=== PATIENT | male | born 1975 | race African-American/Black ===

== ENCOUNTER → 2018-06-02 | Day surgery (SDC) | payer OTHER ==
[~2018-06-02] MED LIST: DEXAMETHASONE SOD PHOS INJ 4 MG/ML VIAL ONE; FENTANYL CITRATE/PF 100MCG/2 ML INJ ONE; GENTAMICIN 120MG/NS 100ML 100 ML ONE; IOPAMIDOL 610MG/1ML 300 MG/ML VIAL IV ONE; LEVOFLOXACIN 500MG/D5W 100ML 100 ML IV ONE; LIDOCAINE HCL 2% LOCAL INJ 5 ML SDV VIAL INJ ONE; MIDAZOLAM HCL 2 MG/2 ML VIAL ONE; ONDANSETRON HCL INJ 2 MG/ML VIAL ONE; PROPOFOL IV EMULSION 10 MG/ML 20 ML VIAL ONE; SEVOFLURANE INHAL SOLN 250 ML PEN BTL ONE
--- NOTE | 2018-06-02 13:51 | Operative Report ---
DATE OF PROCEDURE: June 02, 2018 PREOPERATIVE DIAGNOSIS: History of hematuria. POSTOPERATIVE DIAGNOSES 1. Hematuria. 2. Urethral stricture, distal bulbous urethra. OPERATIONS PERFORMED 1. Cystourethroscopy. 2. Insertion of a number 16-[place] Councill-tip Shields. DCS ENGINEER: Dr. Reed. ANESTHETIC: General. Mr. Nielson is a 43-year-old male who presented with a chief complaint of hematuria. CT scan was unremarkable. This patient was placed on the table in the lithotomy position and was prepped and draped in a sterile manner after satisfactory anesthesia. A number 21-[place] cystoscope was used, and cystourethroscopy was performed and there was a very tight distal bulbous urethral stricture. After several attempts at negotiating the stricture, it was felt that it was going to be fairly difficult. For this reason a guide wire, a flexible-tip Glidewire, was then passed through the working channel of the cystoscope all the way up to the urethra to the bladder. A number 16-[place] Councill-tip was passed over the guide wire once the scope was removed and passed all the way up with some resistance to the bladder. The balloon was filled with 5 mL of contrast material to be absolutely certain that the Shields and the balloon were in the bladder, which they were in satisfactory position. Contrast material was removed from the Shields catheter balloon, and 5 mL of normal saline was placed. Plans for this patient are to keep the Shields catheter for about a week. He is to return to the office in 1 week. Discharge medication was Cipro 500 mg 1 twice a day for 3 weeks. Ultracet tablet 1 every 6 hours p.r.n. and was given 30. Job#: [id number] EV
[2018-06-02 14:35] VITALS: BP 118/76
--- NOTE | 2018-06-02 14:38 | Operative Report ---
DATE OF PROCEDURE: June 02, 2018 ADDENDUM TO OPERATIVE REPORT After visiting with Mr. Nielson's , she told me that he has had a very tight urethral stricture. When they tried to do his back surgery and they tried to put a Shields catheter in him, they could not do it at the time, and he had fairly severe bleeding postoperatively for about 2 days. This explains the fact that he had a very tight stricture in the distal bulbous urethra which initially I could not explain why he had the stricture. This is the reason he had the stricture, and we were not able to fully do the cystoscope, so the Shields catheter was placed over a guidewire. We will keep it for 1 week. I will see him back in a week, and then we will try to redo the cystoscopy and full urethral dilation with balloon dilation after that. Job#: [id number]
--- OUTSIDE RECORDS SUMMARY | 2018-06-08 12:34 | XMS REPORT | Clinical Summary ---
Author Author [facility] Address Unknown Phone Unavailable Care Team Providers Care Shift Production Supervisor Name Role Phone Alex Rogers PCP Allergies No Known Allergies Current Medications No known medications Active Problems Problem Noted Date Achalasia 09/11/2016 Encounters Date Type Specialty Care Team Description 04/30/2018 Hospital Radiology Marek Munoz, Hematuria syndrome; Encounter MD Prostatitis, unspecified prostatitis type 04/05/2018 Transcribe Access Marek Munoz, Hematuria syndrome Orders MD (Primary Dx); Prostatitis, unspecified prostatitis type after 06/01/2017 Family History Medical History Relation Name Comments Diabetes Father Hypertension Mother Relation Name Status Comments Father Alive Mother Alive Social History Tobacco Use Types Packs/Day Years Used Date Never Smoker Smokeless Tobacco: Never Used Alcohol Use Drinks/Week oz/Week Comments No Sex Assigned at Date Recorded Not on file Last Filed Vital Signs Not on file Plan of Treatment Health Maintenance Due Date Last Done Comments INFLUENZA VACCINE 03/24/2018 Procedures Procedure Name Priority Date/Time Associated Diagnosis Comments CT ABDOMEN PELVIS W Routine 04/30/2018 Hematuria syndrome Results for this CONTRAST 10:04 AM CDT Prostatitis, unspecified procedure are in the prostatitis type results section. after 06/01/2017 Results * CT Abdomen Pelvis W Contrast (04/30/2018 10:04 AM) Narrative Performed At EXAMINATION:CT ABDOMEN PELVIS W CONTRAST [facility] CLINICAL HISTORY:R31.9 Hematuriaunspecified, N41.9 Inflammatory disease of prostateunspecified, R31.9 TECHNIQUE: Multiple axial images of the abdomen and pelvis were obtained following intravenous administration of iodinated contrast. Sagittal and coronal computerized reformatted images were also obtained. CT imaging was performed with iterative reconstruction technique and/or automated exposure control to reduce radiation dose. COMPARISON:None. IMPRESSION: 1.Lung bases are clear. 2.Normal liver, gallbladder, adrenals, spleen, and pancreas. 3.Normal kidneys with symmetric renal enhancement. Normal contrast excretion. Normal caliber ureters. Small layering contrast in the bladder. 4.Unremarkable stomach. Contrast passes through multiple loops of normal-appearing small bowel into the colon. Moderate stool in the colon. 5.Prostate is mildly heterogeneous but otherwise unremarkable with no evidence of fluid collection and normal size. 6.No free fluid. 7.L4-L5 artificial disc. 8.Unremarkable abdominal and pelvic vasculature. SUMMARY: No acute abnormality in the abdomen or pelvis. Mildly heterogeneous prostate otherwise appears unremarkable. [id number] Procedure Note Interface, Radiology Results Incoming - 04/30/2018 10:40 AM CDT EXAMINATION: CT ABDOMEN PELVIS W CONTRAST CLINICAL HISTORY: R31.9 Hematuria unspecified, N41.9 Inflammatory disease of prostate unspecified, R31.9 TECHNIQUE: Multiple axial images of the abdomen and pelvis were obtained following intravenous administration of iodinated contrast. Sagittal and coronal computerized reformatted images were also obtained. CT imaging was performed with iterative reconstruction technique and/or automated exposure control to reduce radiation dose. COMPARISON: None. IMPRESSION: 1. Lung bases are clear. 2. Normal liver, gallbladder, adrenals, spleen, and pancreas. 3. Normal kidneys with symmetric renal enhancement. Normal contrast excretion. Normal caliber ureters. Small layering contrast in the bladder. 4. Unremarkable stomach. Contrast passes through multiple loops of normal-appearing small bowel into the colon. Moderate stool in the colon. 5. Prostate is mildly heterogeneous but otherwise unremarkable with no evidence of fluid collection and normal size. 6. No free fluid. 7. L4-L5 artificial disc. 8. Unremarkable abdominal and pelvic vasculature. SUMMARY: No acute abnormality in the abdomen or pelvis. Mildly heterogeneous prostate otherwise appears unremarkable. [id number] Performing Organization Address City/State/Zipcode Phone Number [facility] [address] [place] [address] after 06/01/2017 Insurance Payer Benefit Subscriber ID Type Phone Address Plan / Group SERENA LYONS OPEN xxxxxxxxxxx [facility] WORK Home: [address] [facility] [place] [id number]
== END | disposition home or self-care (01) ==
LOC: OR 09:24
PROVIDERS: ATTEND Specialist
DX: N35.912 Unspecified bulbous urethral stricture, male (principal); K50.90 Crohn's disease, unspecified, without complications; I49.8 Other specified cardiac arrhythmias
CPT/HCPCS: 52000; 93005; C1758; J1100; J1580; J1956; J2001; J2250; J2405; Q9967; 76000